=== PATIENT | female | born 1950 | race Caucasian/White ===

== ENCOUNTER → 2017-11-07 | Outpatient (CLI) | payer MEDICARE, MEDICAID ==
--- NOTE | 2017-11-07 10:16 | RADIOLOGY REPORT (SQ) ---
EXAM DESCRIPTION: CAROTID DOPPLER COMPLETED DATE/TIME: 11/07/2017 10:03 am REASON FOR STUDY: STENOSIS I65.23 OCCLUSION AND STENOSIS OF BILATERAL CAROTID ARTERIES COMPARISON: None. TECHNIQUE: Grayscale ultrasound, Doppler velocity and spectra, and color Doppler images acquired of the extra-cranial carotid and vertebral arteries. Images stored on PACS. LIMITATIONS: Limited study due to the patient's body habitus. FINDINGS: RIGHT CAROTID CCA Velocities: Within normal limits. ICA Velocities Peak systolic 1.35 m/s. End diastolic 0.27 m/s. Proximal ICA/CCA peak systolic ratio 2.3. Dense heterogenous plaque in the carotid bulb and proximal internal and external carotid arteries. E levated velocity in the external carotid artery. LEFT CAROTID CCA Velocities: Within normal limits. ICA Velocities Peak systolic 1.33 m/s. End diastolic 0.21 m/s. Proximal ICA/CCA peak systolic ratio 1.7. Heterogenous plaque in the carotid bulb and proximal internal carotid artery. VERTEBRAL ARTERIES: Antegrade flow. Normal waveforms. SUBCLAVIAN ARTERIES: No finding. OTHER: No other significant finding. IMPRESSION: LIMITED STUDY. DENSE HETEROGENOUS PLAQUE IN RIGHT CAROTID BULB AND PROXIMAL INTERNAL AN D EXTERNAL CAROTID ARTERIES WITH 50- 69% STENOSIS OF THE RIGHT INTERNAL CAROTID ARTERY. THERE IS ALS O STENOSIS OF THE RIGHT EXTERNAL CAROTID ARTERY. BORDERLINE 50% STENOSIS OF THE LEFT INTERNAL CAROTI D ARTERY. IF CLINICALLY INDICATED, CTA OR MRA MAY PROVIDE BETTER VISUALIZATION. COMMENT: Quality ID #[id number]: Velocity criteria are extrapolated from the diameter data as defined by t he Society of Radiologists in Ultrasound Consensus Conference. Radiology 2003: 229; 340-346. TECHNICAL DOCUMENTATION: JOB ID: [id number] [employer]- All Rights Reserved
== END ==
LOC: SP 08:47
PROVIDERS: ATTEND Surgery
DX: I65.23 Occlusion and stenosis of bilateral carotid arteries (principal)
CPT/HCPCS: 93880

== ENCOUNTER 2017-12-27 21:27 | Emergency (ER) | payer OTHER, MEDICARE, MEDICAID ==
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
[2017-12-28 03:11] LABS: ABSOLUTE BASOPHILS # (AUTO) 0.2 10^3/uL (0.0-0.2); ABSOLUTE EOSINOPHILS # (AUTO) 0.3 10^3/uL (0.0-0.6); ABSOLUTE LYMPHOCYTES (AUTO) 3.8 10^3/uL (0.5-4.7); ABSOLUTE NEUT (AUTO) 10.9 10^3/uL (1.7-8.2); BASOPHILS % (AUTO) 1.2 % (0-2); EOSINOPHILS % (AUTO) 1.6 % (0-6); HEMATOCRIT 47.6 % (36.0-47.0); HEMOGLOBIN 16.1 g/dL (12.0-15.5); LYMPHOCYTES % (AUTO) 23.4 % (13-45); MEAN CORPUSCULAR HEMOGLOBIN 30.5 pg (27.0-33.4); MEAN CORPUSCULAR HGB CONC 33.8 g/dL (32.0-36.0); MEAN CORPUSCULAR VOLUME 90 fl (80-97); RED BLOOD COUNT 5.28 10^6/uL (3.72-5.28); RED CELL DISTRIBUTION WIDTH 13.5 % (11.5-14.0); SEGMENTED NEUTROPHILS % (AUTO) 67.8 % (42-78); TOTAL CELLS COUNTED % (AUTO) 100 %; WHITE BLOOD COUNT 16.1 10^3/uL (4.0-10.5)
[2017-12-28 03:43] LABS: PLATELET COUNT 286 10^3/uL (150-450)
[2017-12-28 04:19] VITALS: BP 148/97
--- NOTE | 2017-12-29 12:02 | EKG REPORT ---
SEVERITY:- ABNORMAL ECG - SINUS RHYTHM ANTEROLATERAL INFARCT, RECENT : Confirmed by: Maame Jalloh MD 29-Dec-2017 12:01:36
== END 2017-12-28 04:21 | disposition home or self-care (01) ==
LOC: ER 21:27
DX: S40.011A Contusion of right shoulder, initial encounter (principal); M79.1 Myalgia; R07.89 Other chest pain; M79.604 Pain in right leg; M25.511 Pain in right shoulder; V89.2XXA Person injured in unspecified motor-vehicle accident, traffic, initial encounter
CPT/HCPCS: 36415; 71046; 84484; 85025; 93005; 93010; 99284

== ENCOUNTER 2018-06-02 12:49 | Emergency (ER) | payer MEDICARE, MEDICAID ==
[2018-06-02] MEDS ORDERED: ALBUTEROL SULFATE 0.083% NEB 2.5 MG/3 ML AMPUL NEB ONE (13:05)
[2018-06-02] MEDS ORDERED: IPRATROPIUM/ALBUTEROL 0.5-2.5 MG/3 ML AMPUL NEB ONE (13:05)
[2018-06-02] MEDS ORDERED: METHYLPREDNISOLONE INJ 125 MG/2 ML SDV IV ONE (13:06)
--- NOTE | 2018-06-02 13:10 | ER Document Report ---
ED General - General Stated Complaint: BREATHING DIFFICULTY Time Seen by Provider: 06/02/18 12:57 Mode of Arrival: Medic Information source: Patient Notes: 67-year-old female with COPD, hypertension resents with complaint of shortness of breath that started 2 weeks prior to arrival but worsened over the last few days. Patient no longer uses tobacco. She denies any new productive cough, fever, chest pain. She does admit to urinary frequency. Patient was seen by her primary care physician this morning and advised to be seen in the emergency department. Patient has not had any recent hospitalizations. She has tried her DuoNeb at home without relief. TRAVEL OUTSIDE OF THE [place] IN LAST 30 DAYS: No - HPI Onset: Other Onset/Duration: Gradual, Persistent Quality of pain: No pain Pain Level: Denies Associated symptoms: Shortness of breath. denies: Chest pain, Nonproductive cough, Productive cough, Nausea, Vomiting Exacerbated by: Denies Relieved by: Denies Similar symptoms previously: Yes Recently seen / treated by doctor: Yes - Related Data Allergies/Adverse Reactions: ibuprofen [From Motrin] Allergy (Verified 02/23/16 12:44) Iodinated Contrast- Oral and IV Dye [IV Dye, Iodine Containing] Allergy ( Verified 02/23/16 12:40) Penicillins Allergy (Verified 02/23/16 12:40) Sulfa (Sulfonamide Antibiotics) Allergy (Verified 02/23/16 12:40) Past Medical History - General Information source: Patient, Emergency Med Personnel, [facility] Records - Social History Smoking Status: Former Smoker Cigarette use (# per day): No Chew tobacco use (# tins/day): No Smoking Education Provided: No Frequency of alcohol use: None Drug Abuse: None Lives with: Family Family History: None - Past Medical History Cardiac Medical History: Reports: Hx Hypertension Renal/ Medical History: Denies: Hx Peritoneal Dialysis Psychiatric Medical History: Reports: Hx Depression - Immunizations Immunizations up to date: Yes Hx Diphtheria, Pertussis, Tetanus Vaccination: No Review of Systems - Review of Systems Notes: REVIEW OF SYSTEMS: CONSTITUTIONAL : Denies fever, chills, or sweats. Denies recent illness. Denies weight loss, recent hospitalizations. EENT: Denies visual changes, eye pain. Denies nasal or sinus congestion or discharge. Denies sore throat, oral lesions, difficulty swallowing. CARDIOVASCULAR: Denies chest pain. Denies palpitations. Denies lower extremity edema. RESPIRATORY: Denies cough, cold, or chest congestion. GASTROINTESTINAL: Denies abdominal pain or distention. Denies nausea, vomiting , or diarrhea. Denies blood in vomitus, stools, or per rectum. Denies black, tarry stools. Denies constipation. GENITOURINARY: Denies difficulty urinating, painful urination, blood in urine , or vaginal discharge. MUSCULOSKELETAL: Denies back or neck pain or stiffness. Denies joint pain or swelling. SKIN: Denies rash, lesions or sores. HEMATOLOGIC : Denies easy bruising or bleeding. LYMPHATIC: Denies swollen glands. NEUROLOGICAL: Denies confusion or altered mental status. Denies passing out or loss of consciousness. Denies dizziness or lightheadedness. Denies headache. Denies weakness or paralysis. Denies problems difficulty with ambulation, slurred speech. Denies sensory loss, numbness, or tingling. Denies seizures. PSYCHIATRIC: Denies anxiety or stress. Denies depression, suicidal ideation, or homicidal ideation. Denies visual or auditory hallucinations. Physical Exam - Vital signs Vitals: Pulse Ox 97 06/02/18 12:53 - Notes Notes: PHYSICAL EXAMINATION: GENERAL: Well-appearing, well-nourished and in no acute distress. HEAD: Atraumatic, normocephalic. EYES: Pupils equal round and reactive to light, extraocular movements intact, conjunctiva are normal. ENT: Nares patent, oropharynx clear without exudates. Moist mucous membranes. NECK: Normal range of motion, supple without lymphadenopathy LUNGS: Diminished breath sounds in all lung hernandez with mild expiratory wheezing in the right and left lower lung field. HEART: Regular rate and rhythm without murmurs ABDOMEN: Soft, nontender, nondistended abdomen. No guarding, no rebound. No masses appreciated. Female : deferred Musculoskeletal: Normal range of motion, no pitting or edema. No cyanosis. NEUROLOGICAL: Cranial nerves grossly intact. Normal speech, normal gait. Normal sensory, motor exams PSYCH: Normal mood, normal affect. SKIN: Warm, Dry, normal turgor, no rashes or lesions noted. Course - Re-evaluation Re-evalutation: Laboratory 06/02/18 06/02/18 06/02/18 13:02 13:40 13:40 WBC 12.3 H RBC 4.99 Hgb 15.6 H Hct 45.9 MCV 92 MCH 31.3 MCHC 34.1 RDW 13.2 Plt Count 324 Seg Neutrophils % 74.1 Lymphocytes % 18.6 Monocytes % 5.0 Eosinophils % 1.6 Basophils % 0.7 Absolute Neutrophils 9.1 H Absolute Lymphocytes 2.3 Absolute Monocytes 0.6 Absolute Eosinophils 0.2 Absolute Basophils 0.1 VBG pH 7.44 H VBG pCO2 39.5 VBG HCO3 26.5 VBG Base Excess 2.3 Urine Color YELLOW Urine Appearance CLOUDY Urine pH 8.0 Ur Specific [place] 1.012 Urine Protein NEGATIVE Urine Glucose (UA) NEGATIVE Urine Ketones NEGATIVE Urine Blood NEGATIVE Urine Nitrite NEGATIVE Urine Bilirubin NEGATIVE Urine Urobilinogen NEGATIVE Ur Leukocyte Esterase NEGATIVE Urine WBC (Auto) 3 Urine RBC (Auto) 1 Urine Bacteria (Auto) TRACE Squamous Epi Cells Auto 2 Urine Mucus (Auto) RARE Urine Ascorbic Acid 20 H Chest X-Ray 06/02/18 13:06 IMPRESSION: NO ACUTE RADIOGRAPHIC FINDING IN THE CHEST. 67-year-old female with a history of COPD presents with complaint of shortness of breath that has been ongoing for 2 weeks but worse over the last few days. She was seen by her primary care physician earlier this morning and advised to be seen in the emergency department. Upon arrival patient is afebrile, normotensive and not hypoxic. She does not appear toxic or dehydrated. She is in no acute respiratory distress. Patient has a normal respiratory rate, she has no accessory muscle use. She is able to speak in full sentences. CBC shows mild leukocytosis, VBG within normal limits. Urinalysis without evidence of infection. Chest x-ray shows no acute abnormality. Patient is tearful and when asked why she states that she recently lost her nephew to pancreatic cancer suddenly. She declines admission at this time because she wants to be able to attend his viewing services. Patient was administered multiple breathing treatments, IV Solu-Medrol, magnesium. 06/02/18 14:15 She reevaluated after receiving breathing treatments, Solu-Medrol and magnesium and reports an improvement of her shortness of breath. Patient ambulated on pulse ox and maintained her oxygen saturation above 93%. Patient provided the opportunity to ask questions, and express concerns. Discharge instructions discussed. Patient is agreeable with discharge home. Return indications explained and discussed with the patient who displays understanding. Patient encouraged to return to the emergency department immediately with any concerns. 06/02/18 14:15 06/02/18 19:12 - Vital Signs Vital signs: Temp Pulse Resp BP Pulse Ox 25 H 164/88 H 95 06/02/18 15:53 06/02/18 15:53 06/02/18 15:53 - Laboratory Result Diagrams: 06/02/18 13:40 06/02/18 13:40 Laboratory results interpreted by me: 06/02/18 06/02/18 06/02/18 13:02 13:40 13:40 WBC 12.3 H Hgb 15.6 H Absolute Neutrophils 9.1 H VBG pH Sodium 145.1 H Calcium 10.3 H NT-Pro-B Natriuret Pep Urine Ascorbic Acid 20 H 06/02/18 06/02/18 13:40 13:40 WBC Hgb Absolute Neutrophils VBG pH 7.44 H Sodium Calcium NT-Pro-B Natriuret Pep 943 H Urine Ascorbic Acid - Diagnostic Test Radiology reviewed: Image reviewed, Reports reviewed - EKG Interpretation by Me EKG shows normal: Sinus rhythm Rate: Normal Rhythm: NSR When compared to previous EKG there are: No significant change - Q waves V1 through V3 unchanged from previous EKG obtained December 2017 Discharge - Discharge Clinical Impression: COPD exacerbation Condition: Good Disposition: HOME, SELF-CARE Instructions: Chronic Obstructive Lung Disease ([facility]) Additional Instructions: Follow up with your physician tomorrow for further care or return to the ED IMMEDIATELY if symptoms worsen or new concerns occur. If you cannot afford to follow up with your primary care physician a list of low cost clinics have been provided at the end of your discharge papers as well. Prescriptions: Prednisone [Deltasone 20 mg Tablet] 3 tab PO DAILY 5 Days #15 tablet Referrals: ISHAN THOMPSON PA-C [ALLIED HEALTH PROFESSIONAL] - Follow up as needed
[2018-06-02] MEDS: MAGNESIUM SULFATE/D5W 1 GM/100 ML RTUPB IV SCH ×2 (13:19→14:46)
[2018-06-02 13:25] LABS: APPEARANCE,URINE CLOUDY; BILIRUBIN,URINE NEGATIVE (NEGATIVE); COLOR,URINE YELLOW; GLUCOSE, URINE NEGATIVE (NEGATIVE); KETONES,URINE NEGATIVE (NEGATIVE); LEUKOCYTE ESTERASE,URINE NEGATIVE (NEGATIVE); NITRITE,URINE NEGATIVE (NEGATIVE); PROTEIN,URINE NEGATIVE (NEGATIVE); URINE SPECIFIC GRAVITY 1.012; UROBILINOGEN,URINE NEGATIVE mg/dL (<2.0)
--- NOTE | 2018-06-02 13:40 | RADIOLOGY REPORT (SQ) ---
EXAM DESCRIPTION: CHEST 2 VIEWS COMPLETED DATE/TIME: 06/02/2018 1:29 pm REASON FOR STUDY: sob COMPARISON: 12/28/2017 two-view chest EXAM PARAMETERS: NUMBER OF VIEWS: two views TECHNIQUE: Digital Frontal and Lateral radiographic views of the chest acquired. RADIATION DOSE: NA LIMITATIONS: none FINDINGS: LUNGS AND PLEURA: No opacities, masses or pneumothorax. No pleural effusion. MEDIASTINUM AND HILAR STRUCTURES: No masses or contour abnormalities. HEART AND VASCULAR STRUCTURES: Stable mild cardiomegaly BONES: Osteoporotic. No thoracic compression deformities HARDWARE: Surgical clips right peritracheal region likely post right lobe thyroidectomy OTHER: No other significant finding. IMPRESSION: NO ACUTE RADIOGRAPHIC FINDING IN THE CHEST. TECHNICAL DOCUMENTATION: JOB ID: [id number] [employer]- All Rights Reserved Reading location - IP/workstation name: [email or web address]
[2018-06-02 13:58] LABS: VENOUS BLOOD BASE EXCESS 2.3 mmol/L; VENOUS BLOOD HCO3 26.5 mmol/L (20-32); VENOUS BLOOD PCO2 39.5 mmHg (35-63); VENOUS BLOOD PH 7.44 (7.30-7.42)
[2018-06-02 13:59] LABS: ABSOLUTE BASOPHILS # (AUTO) 0.1 10^3/uL (0.0-0.2); ABSOLUTE EOSINOPHILS # (AUTO) 0.2 10^3/uL (0.0-0.6); ABSOLUTE LYMPHOCYTES (AUTO) 2.3 10^3/uL (0.5-4.7); ABSOLUTE MONOCYTES (AUTO) 0.6 10^3/uL (0.1-1.4); ABSOLUTE NEUT (AUTO) 9.1 10^3/uL (1.7-8.2); BASOPHILS % (AUTO) 0.7 % (0-2); EOSINOPHILS % (AUTO) 1.6 % (0-6); HEMATOCRIT 45.9 % (36.0-47.0); HEMOGLOBIN 15.6 g/dL (12.0-15.5); LYMPHOCYTES % (AUTO) 18.6 % (13-45); MEAN CORPUSCULAR HEMOGLOBIN 31.3 pg (27.0-33.4); MEAN CORPUSCULAR HGB CONC 34.1 g/dL (32.0-36.0); MEAN CORPUSCULAR VOLUME 92 fl (80-97); PLATELET COUNT 324 10^3/uL (150-450); RED BLOOD COUNT 4.99 10^6/uL (3.72-5.28); RED CELL DISTRIBUTION WIDTH 13.2 % (11.5-14.0); SEGMENTED NEUTROPHILS % (AUTO) 74.1 % (42-78); TOTAL CELLS COUNTED % (AUTO) 100 %; WHITE BLOOD COUNT 12.3 10^3/uL (4.0-10.5)
[2018-06-02 14:15] LABS: ANION GAP 12 (5-19); BLOOD UREA NITROGEN 16 mg/dL (7-20); CALCIUM 10.3 mg/dL (8.4-10.2); CARBON DIOXIDE 28 mmol/L (22-30); CHLORIDE 105 mmol/L (98-107); GLUCOSE 110 mg/dL (75-110); POTASSIUM 4.6 mmol/L (3.6-5.0); SODIUM 145.1 mmol/L (137-145)
[2018-06-02 14:27] LABS: TROPONIN I 0.026 ng/mL
[2018-06-02 16:07] VITALS: BP 164/88
--- NOTE | 2018-06-03 06:19 | EKG REPORT ---
SEVERITY:- ABNORMAL ECG - SINUS RHYTHM ANTERIOR INFARCT, AGE INDETERMINATE : Confirmed by: Cali Cabrales MD 03-Jun-2018 06:17:59
== END 2018-06-02 16:06 | disposition home or self-care (01) ==
LOC: ER 12:49
DX: J44.1 Chronic obstructive pulmonary disease with (acute) exacerbation (principal); R06.02 Shortness of breath; R35.0 Frequency of micturition; D72.819 Decreased white blood cell count, unspecified; I10 Essential (primary) hypertension; Z87.891 Personal history of nicotine dependence; Z88.6 Allergy status to analgesic agent; Z91.041 Radiographic dye allergy status; Z88.0 Allergy status to penicillin; Z88.2 Allergy status to sulfonamides
CPT/HCPCS: 93005; 94640 ×2; 99285; 96375; 96365; 96366; 36415; 85025; 80048; 81001; 84484; 82803; 83880; 71046; 93010; J2930; J3475; A9270 ×2; J7620

== ENCOUNTER 2018-11-28 14:31 | Emergency (ER) | payer MEDICARE, MEDICAID ==
[2018-11-28] MEDS ORDERED: ONDANSETRON 4 MG TAB.RAPDIS PO ONE (14:53)
--- NOTE | 2018-11-28 14:57 | ER Document Report ---
ED Medical Screen (RME) - General Chief Complaint: Weakness Stated Complaint: WEAKNESS Time Seen by Provider: 11/28/18 14:53 Mode of Arrival: Wheelchair Information source: Patient Notes: 68-year-old female presented to ED for complaint of weakness with no energy and rub her legs for the last several days. She states she has been nauseated and has vomited one time has had some dizziness but has not been eating properly and has no appetite. She states that at times it is hard to catch her breath and she gets short of breath. She states she is on chronic pain management for chronic pain in her right side. She states she vomited once 3 days ago and had a temperature of 101.72 days ago but none since. Patient states she is nauseated and is not able to walk like she usually does due to the being tired and fatigued. Lungs clear respirations regular and unlabored patient able to speak in full sentences pupils equal and react to light. Patient states she has a history of CHF, COPD, and CAD. She states she has high blood pressure and cholesterol but those are under control with her medications I have greeted and performed a rapid initial assessment of this patient. A comprehensive ED assessment and evaluation of the patient, analysis of test results and completion of medical decision making process will be conducted by an additional ED providers. TRAVEL OUTSIDE OF THE [place] IN LAST 30 DAYS: No - Related Data Allergies/Adverse Reactions: ibuprofen [From Motrin] Allergy (Verified 02/23/16 12:44) Iodinated Contrast- Oral and IV Dye [IV Dye, Iodine Containing] Allergy (Verified 02/23/16 12:40) Penicillins Allergy (Verified 02/23/16 12:40) Sulfa (Sulfonamide Antibiotics) Allergy (Verified 02/23/16 12:40) Past Medical History - Past Medical History Cardiac Medical History: Reports: Hx Hypertension Renal/ Medical History: Denies: Hx Peritoneal Dialysis Psychiatric Medical History: Reports: Hx Depression Past Surgical History: Reports: Hx Orthopedic Surgery - Immunizations Immunizations up to date: Yes Hx Diphtheria, Pertussis, Tetanus Vaccination: No Physical Exam - Vital signs Vitals: Temp Pulse Resp BP Pulse Ox 99.1 F 85 16 110/76 94 11/28/18 14:39 11/28/18 14:39 11/28/18 14:39 11/28/18 14:39 11/28/18 14:39 Course - Vital Signs Vital signs: Temp Pulse Resp BP Pulse Ox 99.1 F 85 16 110/76 94 11/28/18 14:39 11/28/18 14:39 11/28/18 14:39 11/28/18 14:39 11/28/18 14:39 Doctor's Discharge - Discharge Referrals: SAMY FENTON MD [Primary Care Provider] - Follow up as needed
--- NOTE | 2018-11-28 15:35 | RADIOLOGY REPORT (SQ) ---
EXAM DESCRIPTION: CHEST 2 VIEWS COMPLETED DATE/TIME: 11/28/2018 3:13 pm REASON FOR STUDY: short of breath COMPARISON: 06/02/2018 EXAM PARAMETERS: NUMBER OF VIEWS: two views TECHNIQUE: Digital Frontal and Lateral radiographic views of the chest acquired. RADIATION DOSE: NA LIMITATIONS: none FINDINGS: LUNGS AND PLEURA: Increased heterogeneous opacity of the right lung base, with underlying volume loss of the right hemithorax of uncertain nature, possibly due to prior lobectomy or wedge res ection. MEDIASTINUM AND HILAR STRUCTURES: No masses or contour abnormalities. HEART AND VASCULAR STRUCTURES: Heart normal size. No evidence for failure. BONES: No acute findings. HARDWARE: None in the chest. OTHER: No other significant finding. IMPRESSION: Increased heterogeneous opacity of the right lung base, with underlying volume loss of t he right hemithorax of uncertain nature, possibly due to prior lobectomy or wedge resection. Finding s are concerning for infection or aspiration. TECHNICAL DOCUMENTATION: JOB ID: [id number] [employer]- All Rights Reserved Reading location - IP/workstation name: [email or web address]
[2018-11-28 15:40] LABS: ABSOLUTE LYMPHOCYTES (AUTO) 2.2 10^3/uL (0.5-4.7); ABSOLUTE MONOCYTES (AUTO) 0.6 10^3/uL (0.1-1.4); ABSOLUTE NEUT (AUTO) 3.2 10^3/uL (1.7-8.2); BASOPHILS % (AUTO) 0.7 % (0-2); EOSINOPHILS % (AUTO) 0.2 % (0-6); HEMATOCRIT 51.3 % (36.0-47.0); HEMOGLOBIN 17.8 g/dL (12.0-15.5); LYMPHOCYTES % (AUTO) 35.4 % (13-45); MEAN CORPUSCULAR HEMOGLOBIN 30.2 pg (27.0-33.4); MEAN CORPUSCULAR HGB CONC 34.6 g/dL (32.0-36.0); MEAN CORPUSCULAR VOLUME 87 fl (80-97); MONOCYTES % (AUTO) 10.5 % (3-13); PLATELET COUNT 237 10^3/uL (150-450); RED BLOOD COUNT 5.88 10^6/uL (3.72-5.28); RED CELL DISTRIBUTION WIDTH 13.2 % (11.5-14.0); SEGMENTED NEUTROPHILS % (AUTO) 53.2 % (42-78); TOTAL CELLS COUNTED % (AUTO) 100 %; WHITE BLOOD COUNT 6.1 10^3/uL (4.0-10.5)
[2018-11-28 15:56] LABS: APPEARANCE,URINE CLOUDY; BILIRUBIN,URINE NEGATIVE (NEGATIVE); GLUCOSE, URINE NEGATIVE (NEGATIVE); KETONES,URINE NEGATIVE (NEGATIVE); LEUKOCYTE ESTERASE,URINE TRACE (NEGATIVE); NITRITE,URINE NEGATIVE (NEGATIVE); PROTEIN,URINE 100 mg/dL (NEGATIVE); URINE SPECIFIC GRAVITY 1.019; UROBILINOGEN,URINE NEGATIVE mg/dL (<2.0)
[2018-11-28 15:59] LABS: COLOR,URINE YELLOW
[2018-11-28 15:59] LABS: ALANINE AMINOTRANSFERASE 24 U/L (9-52); ALBUMIN 4.4 g/dL (3.5-5.0); ALKALINE PHOSPHATASE 61 U/L (38-126); ANION GAP 11 (5-19); ASPARTATE AMINO TRANSFERASE 32 U/L (14-36); BILIRUBIN,DIRECT 0.3 mg/dL (0.0-0.4); BILIRUBIN,TOTAL 0.6 mg/dL (0.2-1.3); BLOOD UREA NITROGEN 23 mg/dL (7-20); CALCIUM 9.7 mg/dL (8.4-10.2); CARBON DIOXIDE 28 mmol/L (22-30); CHLORIDE 100 mmol/L (98-107); GLUCOSE 128 mg/dL (75-110); POTASSIUM 3.7 mmol/L (3.6-5.0); SODIUM 139.2 mmol/L (137-145); TOTAL PROTEIN 7.2 g/dL (6.3-8.2)
[2018-11-28] MEDS ORDERED: IPRATROPIUM/ALBUTEROL 0.5-2.5 MG/3 ML AMPUL NEB ONE (16:15)
[2018-11-28] MEDS ORDERED: ACETAMINOPHEN 325 MG TABLET PO ONE (16:16)
--- NOTE | 2018-11-28 16:18 | ER Document Report ---
ED General - General Chief Complaint: Weakness Stated Complaint: WEAKNESS Time Seen by Provider: 11/28/18 14:53 Mode of Arrival: Wheelchair Information source: Patient Notes: 68-year-old female with COPD, hypertension, congestive heart failure presents with complaint of cough, myalgia, weakness, fatigue and intermittent subjective fever for approximately 1 week. Patient no longer smokes but states that she has had a productive persistent cough. Patient has been experiencing chills, sweats. Patient has been taking her breathing medications without relief. She did not receive a flu shot. She denies any headache, chest pain, abdominal pain. Patient does admit to nausea and one episode of vomiting which resolved. TRAVEL OUTSIDE OF THE [place] IN LAST 30 DAYS: No - HPI Onset: Other Onset/Duration: Gradual, Persistent Quality of pain: Achy Severity: Mild Associated symptoms: Body/muscle aches, Chills, Productive cough, Fever, Nausea, Vomiting, Shortness of breath Exacerbated by: Coughing Relieved by: Denies Similar symptoms previously: Yes Recently seen / treated by doctor: Yes - Related Data Allergies/Adverse Reactions: ibuprofen [From Motrin] Allergy (Verified 02/23/16 12:44) Iodinated Contrast- Oral and IV Dye [IV Dye, Iodine Containing] Allergy (Verified 02/23/16 12:40) Penicillins Allergy (Verified 02/23/16 12:40) Sulfa (Sulfonamide Antibiotics) Allergy (Verified 02/23/16 12:40) Past Medical History - General Information source: Patient, [facility] Records - Social History Smoking Status: Former Smoker Frequency of alcohol use: None Drug Abuse: None Lives with: Spouse/Significant other Family History: None Patient has suicidal ideation: No Patient has homicidal ideation: No - Past Medical History Cardiac Medical History: Reports: Hx Congestive Heart Failure, Hx Hypertension Pulmonary Medical History: Reports: Hx COPD Renal/ Medical History: Denies: Hx Peritoneal Dialysis Psychiatric Medical History: Reports: Hx Depression Past Surgical History: Reports: Hx Orthopedic Surgery - Immunizations Immunizations up to date: Yes Hx Diphtheria, Pertussis, Tetanus Vaccination: No Review of Systems - Review of Systems Notes: REVIEW OF SYSTEMS: CONSTITUTIONAL : Denies recent illness. Denies weight loss, recent hospitalizations. EENT: Denies visual changes, eye pain. Denies sore throat, oral lesions, difficulty swallowing. CARDIOVASCULAR: Denies chest pain. Denies palpitations. Denies lower extremity edema. RESPIRATORY: Cough, shortness of breath,+ wheezing GASTROINTESTINAL: Denies abdominal pain or distention. Denies diarrhea. Denies blood in vomitus, stools, or per rectum. Denies black, tarry stools. Denies constipation. GENITOURINARY: Denies difficulty urinating, painful urination, frequency, blood in urine, or vaginal discharge. MUSCULOSKELETAL: Denies back or neck pain or stiffness. Denies joint pain or swelling. SKIN: Denies rash, lesions or sores. HEMATOLOGIC : Denies easy bruising or bleeding. LYMPHATIC: Denies swollen glands. NEUROLOGICAL: Denies confusion or altered mental status. Denies loss of consciousness. Denies dizziness or lightheadedness. Denies headache. Denies w eakness or paralysis. Denies problems difficulty with ambulation, slurred speech. Denies sensory loss, numbness, or tingling. Denies seizures. PSYCHIATRIC: Denies anxiety or stress. Denies depression, suicidal ideation, or homicidal ideation. Denies visual or auditory hallucinations. Physical Exam - Vital signs Vitals: Temp Pulse Resp BP Pulse Ox 99.1 F 85 16 110/76 94 11/28/18 14:39 11/28/18 14:39 11/28/18 14:39 11/28/18 14:39 11/28/18 14:39 - Notes Notes: PHYSICAL EXAMINATION: GENERAL: Ill-appearing but not toxic HEAD: Atraumatic, normocephalic. EYES: Pupils equal round and reactive to light, extraocular movements intact, conjunctiva are normal. ENT: Nares patent, oropharynx clear without exudates. Moist mucous membranes. NECK: Normal range of motion, supple without lymphadenopathy LUNGS: Breath sounds clear to auscultation bilaterally and equal. No wheezes rales or rhonchi. HEART: Regular rate and rhythm without murmurs ABDOMEN: Soft, nontender, nondistended abdomen. No guarding, no rebound. No masses appreciated. Female : deferred Musculoskeletal: Normal range of motion, no pitting or edema. No cyanosis. NEUROLOGICAL: Cranial nerves grossly intact. Normal speech, normal gait. Normal sensory, motor exams PSYCH: Normal mood, normal affect. SKIN: Warm, Dry, normal turgor, no rashes or lesions noted. Course - Re-evaluation Re-evalutation: Laboratory 11/28/18 11/28/18 11/28/18 15:18 15:28 15:28 WBC 6.1 RBC 5.88 H Hgb 17.8 H Hct 51.3 H MCV 87 MCH 30.2 MCHC 34.6 RDW 13.2 Plt Count 237 Seg Neutrophils % 53.2 Lymphocytes % 35.4 Monocytes % 10.5 Eosinophils % 0.2 Basophils % 0.7 Absolute Neutrophils 3.2 Absolute Lymphocytes 2.2 Absolute Monocytes 0.6 Absolute Eosinophils 0.0 Absolute Basophils 0.0 Sodium 139.2 Potassium 3.7 Chloride 100 Carbon Dioxide 28 Anion Gap 11 BUN 23 H Creatinine 0.68 Est GFR ( Amer) > 60 Est GFR (Non-Af Amer) > 60 Glucose 128 H Calcium 9.7 Total Bilirubin 0.6 Direct Bilirubin 0.3 Neonat Total Bilirubin Not Reportable Neonat Direct Bilirubin Not Reportable Neonat Indirect Bili Not Reportable AST 32 ALT 24 Alkaline Phosphatase 61 Total Protein 7.2 Albumin 4.4 Urine Color YELLOW Urine Appearance CLOUDY Urine pH 6.0 Ur Specific Dalton 1.019 Urine Protein 100 H Urine Glucose (UA) NEGATIVE Urine Ketones NEGATIVE Urine Blood NEGATIVE Urine Nitrite NEGATIVE Urine Bilirubin NEGATIVE Urine Urobilinogen NEGATIVE Ur Leukocyte Esterase TRACE H Urine WBC (Auto) 4 Urine RBC (Auto) 1 U Hyaline Cast (Auto) 5 Squamous Epi Cells Auto 3 Urine Mucus (Auto) FEW Urine Ascorbic Acid 40 H Influenza A (Rapid) Influenza B (Rapid) 11/28/18 16:29 WBC RBC Hgb Hct MCV MCH MCHC RDW Plt Count Seg Neutrophils % Lymphocytes % Monocytes % Eosinophils % Basophils % Absolute Neutrophils Absolute Lymphocytes Absolute Monocytes Absolute Eosinophils Absolute Basophils Sodium Potassium Chloride Carbon Dioxide Anion Gap BUN Creatinine Est GFR ( Amer) Est GFR (Non-Af Amer) Glucose Calcium Total Bilirubin Direct Bilirubin Neonat Total Bilirubin Neonat Direct Bilirubin Neonat Indirect Bili AST ALT Alkaline Phosphatase Total Protein Albumin Urine Color Urine Appearance Urine pH Ur Specific Dalton Urine Protein Urine Glucose (UA) Urine Ketones Urine Blood Urine Nitrite Urine Bilirubin Urine Urobilinogen Ur Leukocyte Esterase Urine WBC (Auto) Urine RBC (Auto) U Hyaline Cast (Auto) Squamous Epi Cells Auto Urine Mucus (Auto) Urine Ascorbic Acid Influenza A (Rapid) NEGATIVE Influenza B (Rapid) NEGATIVE Chest X-Ray 11/28/18 14:54 IMPRESSION: Increased heterogeneous opacity of the right lung base, with underlying volume loss of the right hemithorax of uncertain nature, possibly due to prior lobectomy or wedge resection. Findings are concerning for infection or aspiration. Chest CT 11/28/18 16:15 IMPRESSION: 1. There are postoperative findings of a prior right apical paramedian resection, perhaps of a posterior mediastinal mass. There is underlying scarring or atelectasis of the right lung base with superimposed ground-glass opacity and consolidation of the right middle lobe and right lung base. Findings favor atypical infection or aspiration. Recommend follow-up CT in 3 months to ensure stability or resolution. 2. Emphysema. 3. Coronary artery disease. Temp Pulse Resp BP Pulse Ox 98.3 F 67 18 105/64 95 11/28/18 18:10 11/28/18 18:10 11/28/18 18:10 11/28/18 18:10 11/28/18 18:10 11/28/18 17:30 Discussed findings of pneumonia with the patient. Patient was offered admission but is declining. She has an upcoming appointment with her primary care physician in approximately 1 week and does not want to be admitted to the hospital. Vital signs reviewed upon arrival and patient is afebrile, normotensive and not hypoxic. She does appear ill but not toxic or dehydrated. She is in no acute respiratory distress. Patient did receive breathing treatments, doxycycline. Patient discharged home with recommendations to return if she is unable to tolerate her antibiotics, fever returns or for any other symptoms that are concerning to her. 11/28/18 22:51 11/29/18 01:18 - Vital Signs Vital signs: Temp Pulse Resp BP Pulse Ox 98.3 F 67 18 105/64 95 11/28/18 18:10 11/28/18 18:10 11/28/18 18:10 11/28/18 18:10 11/28/18 18:10 - Laboratory Result Diagrams: 11/28/18 15:28 11/28/18 15:28 Laboratory results interpreted by me: 11/28/18 11/28/18 11/28/18 15:18 15:28 15:28 RBC 5.88 H Hgb 17.8 H Hct 51.3 H BUN 23 H Glucose 128 H Urine Protein 100 H Ur Leukocyte Esterase TRACE H Urine Ascorbic Acid 40 H - Diagnostic Test Radiology reviewed: Image reviewed, Reports reviewed Discharge - Discharge Clinical Impression: Community acquired pneumonia Qualifiers: Laterality: unspecified laterality Qualified Code(s): J18.9 - Pneumonia, unspecified organism Condition: Good Disposition: HOME, SELF-CARE Instructions: Pneumonia ([facility]) Additional Instructions: You have been diagnosed with a pneumonia. It is very important that you take all of your antibiotics until they are gone even if you are feeling better. Please return to the emergency department immediately if you began having worsening shortness of breath, become confused, have worsening pain, pass out, have persistent vomiting that prevents you from being able to drink fluids for m ore than 12 hours, or have any other symptoms that are worrisome to you. Please follow-up with your primary care doctor in the next 1-2 days. Prescriptions: RX: Doxycycline Hyclate 100 mg PO BID #14 capsule Ondansetron [Zofran Odt 4 mg Tablet] 1 - 2 tab PO Q4H PRN #15 tab.rapdis PRN Reason: For Nausea/Vomiting Referrals: SAMY FENTON MD [Primary Care Provider] - 12/10/18
[2018-11-28 16:58] LABS: A TYPE INFLUENZA AG NEGATIVE (NEGATIVE); B INFLUENZA AG NEGATIVE (NEGATIVE)
--- NOTE | 2018-11-28 17:15 | RADIOLOGY REPORT (SQ) ---
EXAM DESCRIPTION: CT CHEST WITHOUT COMPLETED DATE/TIME: 11/28/2018 4:53 pm REASON FOR STUDY: concern for infection seen on x-ray COMPARISON: Chest radiograph, 11/28/2018 TECHNIQUE: CT scan performed of the chest without intravenous contrast. Images reviewed with lung, soft tissue and bone windows. Reconstructed coronal and sagittal MPR images reviewed. All images st ored on PACS. All CT scanners at this facility use dose modulation, iterative reconstruction, and/or weight based d osing when appropriate to reduce radiation dose to as low as reasonably achievable (ALARA). [facility]: Dose Right [facility]: CareDose [facility]: Dose Right [facility]: Teradose 4D [facility]: [employer] RADIATION DOSE: CT Rad equipment meets quality standard of care and radiation dose reduction techniq ues were employed. CTDIvol: 14.5 mGy. DLP: 597 mGy-cm. mGy. LIMITATIONS: No technical limitations. FINDINGS: LUNGS AND PLEURA: There are postoperative findings of a prior right apical paramedian rese ction. There is underlying scarring or atelectasis of the right lung base with superimposed ground-g lass opacity and consolidation of the right middle lobe and right lung base. Mild centrilobular emph ysema. HILAR AND MEDIASTINAL STRUCTURES: No identified masses or abnormal nodes. No obvious aneurysm. HEART AND VASCULAR STRUCTURES: No aneurysm. No pericardial effusion. Three-vessel coronary artery c alcifications. UPPER ABDOMEN: No significant findings. Limited exam. THYROID AND OTHER SOFT TISSUES: No masses. No adenopathy. BONES: No significant finding. HARDWARE: None in the chest. OTHER: No other significant findings. IMPRESSION: 1. There are postoperative findings of a prior right apical paramedian resection, perhap s of a posterior mediastinal mass. There is underlying scarring or atelectasis of the right lung bas e with superimposed ground-glass opacity and consolidation of the right middle lobe and right lung ba se. Findings favor atypical infection or aspiration. Recommend follow-up CT in 3 months to ensure s tability or resolution. 2. Emphysema. 3. Coronary artery disease. TECHNICAL DOCUMENTATION: JOB ID: [id number] Quality ID # [id number]: Final reports with documentation of one or more dose reduction techniques (e.g., Au tomated exposure control, adjustment of the mA and/or kV according to patient size, use of iterative reconstruction technique) 2010 [email or web address]- All Rights Reserved Reading location - IP/workstation name: [email or web address]
[2018-11-28 18:11] VITALS: BP 105/64
== END 2018-11-28 18:13 | disposition home or self-care (01) ==
LOC: ER 14:31
DX: J18.9 Pneumonia, unspecified organism (principal); R53.1 Weakness; J44.9 Chronic obstructive pulmonary disease, unspecified; I11.0 Hypertensive heart disease with heart failure; I50.9 Heart failure, unspecified; Z88.0 Allergy status to penicillin; Z88.2 Allergy status to sulfonamides; Z88.6 Allergy status to analgesic agent
CPT/HCPCS: 94640; 99285; 36415; 85025; 80053; 81001; 87804; 71046; 71250; A9270 ×3; J7620; S0119

== ENCOUNTER 2019-06-14 15:36 | Emergency (ER) | payer MEDICARE, MEDICAID ==
[2019-06-14] MEDS ORDERED: IPRATROPIUM/ALBUTEROL 0.5-2.5 MG/3 ML AMPUL NEB ONE (16:26)
--- NOTE | 2019-06-14 16:28 | ER Document Report ---
ED Medical Screen (RME) - General Chief Complaint: Breathing Difficulty Stated Complaint: BREATHING DIFFICULTY Time Seen by Provider: 06/14/19 16:23 Primary Care Provider: CAMILLA MERIDA PA [Primary Care Provider] - Follow up as needed Notes: Patient is a 60-year-old female history of COPD and CHF presents to the emergency department for worsening respiratory distress. States she is become more short of breath over the last couple of days. Patient states she feels generalized weakness and is unable to walk "a long time because I get short of breath." Patient is complaining of a generalized heaviness in the center of her chest. States pain increases when she takes a deep breath. Patient also complaining of a generalized headache. States she recently saw her neurologist who gave her Botox injections. States "they helped a little bit." GENERAL: Alert, interacts well. No acute distress. LUNGS: Inspiratory expiratory wheezes heard all lung hernandez I have greeted and performed a rapid initial assessment of this patient. A comprehensive ED assessment and evaluation of the patient, analysis of test results and completion of the medical decision making process will be conducted by additional ED providers. I have specifically instructed the patient or family members with the patient to immediately return to any nursing staff should anything change in the patient's condition or with their chief complaint. This medical record was dictated with voice recognizing software. There may be grammatical, syntax errors that are unintended. TRAVEL OUTSIDE OF THE [place] IN LAST 30 DAYS: No - Related Data Allergies/Adverse Reactions: carbamazepine [From Tegretol] Allergy (Verified 06/14/19 16:19) ibuprofen [From Motrin] Allergy (Verified 06/14/19 15:38) Iodinated Contrast- Oral and IV Dye [IV Dye, Iodine Containing] Allergy (Verified 06/14/19 15:38) Penicillins Allergy (Verified 06/14/19 15:38) Sulfa (Sulfonamide Antibiotics) Allergy (Verified 06/14/19 15:38) Past Medical History - Past Medical History Cardiac Medical History: Reports: Hx Congestive Heart Failure, Hx Hypertension Pulmonary Medical History: Reports: Hx COPD Renal/ Medical History: Denies: Hx Peritoneal Dialysis Psychiatric Medical History: Reports: Hx Depression Past Surgical History: Reports: Hx Orthopedic Surgery - Immunizations Immunizations up to date: Yes Hx Diphtheria, Pertussis, Tetanus Vaccination: No Physical Exam - Vital signs Vitals: Temp Pulse Resp BP Pulse Ox 98.2 F 88 22 H 128/76 H 97 06/14/19 15:37 06/14/19 15:37 06/14/19 15:37 06/14/19 15:37 06/14/19 15:37 Course - Vital Signs Vital signs: Temp Pulse Resp BP Pulse Ox 98.2 F 88 22 H 128/76 H 97 06/14/19 15:37 06/14/19 15:37 06/14/19 15:37 06/14/19 15:37 06/14/19 15:37 Doctor's Discharge - Discharge Referrals: CAMILLA MERIDA PA [Primary Care Provider] - Follow up as needed
[2019-06-14] MEDS ORDERED: ASPIRIN 325 MG TABLET PO ONE (16:37)
--- NOTE | 2019-06-14 17:00 | ER Document Report ---
ED General - General Chief Complaint: Breathing Difficulty Stated Complaint: BREATHING DIFFICULTY Time Seen by Provider: 06/14/19 16:23 Primary Care Provider: CAMILLA MERIDA PA [NO LOCAL MD] - Follow up as needed Mode of Arrival: Ambulatory Information source: Patient Notes: Joe Chavez is a 60yo female who presents today to the emergency department with multiple complaints. Patient has a history of COPD, CAD, RSD, breast cancer. Patient complains of breathing difficulty that is worse in the past week. She also complains she is dizzy, has a headache, her stomach hurts and her sinuses are hurting. Patient reports she has no strength to walk. Patient reports she has been up all night because she cannot cannot lay down. She reports she has been leaning forward. She reports that she gets very anxious with history of anxiety and that sort of the reason she cannot lay down to go to sleep. She complains of epigastric abdominal pain. She denies chest pain denies chest heaviness at this time. Patient reports been short of breath for the past few years. The difficulty breathing has increased in the last couple weeks. She went to her primary care Dr. Bolden approximately 10 days ago. He was not there but she was treated by a "Jacy" with prednisone and an antibiotic. She has finished those medications. She also complains of a massive headache for the past year with a history of migraines. She had a CT head for this over a year ago. She was recently treated for this with Botox and another medication that she reports is not working. She reports decreased appetite. C/O anxiety, reports fingers bright colored. All these symptoms concerns have been going on for a long time. Denies fever reports she vomited twice today. Denies diarrhea. Patient is short of breath on exertion. Winded when talking. TRAVEL OUTSIDE OF THE [place] IN LAST 30 DAYS: No - HPI Onset: Other Onset/Duration: Persistent Quality of pain: Pressure Pain Level: 5 Associated symptoms: Headache, Vomiting, Shortness of breath Exacerbated by: Denies Relieved by: Denies Similar symptoms previously: Yes Recently seen / treated by doctor: Yes - Related Data Allergies/Adverse Reactions: carbamazepine [From Tegretol] Allergy (Verified 06/14/19 16:19) ibuprofen [From Motrin] Allergy (Verified 06/14/19 15:38) Iodinated Contrast- Oral and IV Dye [IV Dye, Iodine Containing] Allergy (Verified 06/14/19 15:38) Penicillins Allergy (Verified 06/14/19 15:38) Sulfa (Sulfonamide Antibiotics) Allergy (Verified 06/14/19 15:38) Past Medical History - General Information source: Patient - Social History Smoking Status: Former Smoker Cigarette use (# per day): No Frequency of alcohol use: None Drug Abuse: None Lives with: Family Family History: None Patient has suicidal ideation: No Patient has homicidal ideation: No - Past Medical History Cardiac Medical History: Reports: Hx Congestive Heart Failure, Hx Hypertension Pulmonary Medical History: Reports: Hx COPD Renal/ Medical History: Denies: Hx Peritoneal Dialysis Psychiatric Medical History: Reports: Hx Depression Past Surgical History: Reports: Hx Orthopedic Surgery - Immunizations Immunizations up to date: Yes Hx Diphtheria, Pertussis, Tetanus Vaccination: No Review of Systems - Review of Systems Notes: Review HPI for review of systems., All other systems negative Physical Exam - Vital signs Vitals: Temp Pulse Resp BP Pulse Ox 98.2 F 88 22 H 128/76 H 97 06/14/19 15:37 06/14/19 15:37 06/14/19 15:37 06/14/19 15:37 06/14/19 15:37 - General General appearance: Alert, Anxious In distress: None - HEENT Head: Normocephalic, Atraumatic Eyes: Normal Conjunctiva: Normal Sinus: Frontal, Mastoid, Tenderness Mouth/Lips: Normal Mucous membranes: Normal, Moist Pharynx: Normal. No: Erythema Neck: Normal, Supple. No: Lymphadenopathy - Respiratory Respiratory status: Labored Chest status: Nontender Breath sounds: Decreased air movement Chest palpation: Normal - Cardiovascular Rhythm: Regular Heart sounds: Normal auscultation Murmur: No - Abdominal Inspection: Normal Distension: No distension Bowel sounds: Normal Tenderness: Tender - epigastric area Organomegaly: No organomegaly - Back Back: Normal, Nontender - Extremities General upper extremity: Normal ROM General lower extremity: Normal ROM - Neurological Neuro grossly intact: Yes Cognition: Normal Orientation: AAOx4 Mandy Coma Scale Eye Opening: Spontaneous Mandy Coma Scale Verbal: Oriented [place] Coma Scale Motor: Obeys Commands Mandy Coma Scale Total: 15 Speech: Normal Sensory: Normal - Psychological Associated symptoms: Normal affect, Normal mood - Skin Skin Temperature: Warm Skin Moisture: Dry Skin Color: Normal Course - Re-evaluation Re-evalutation: 06/14/19 19:55 This 68-year-old female presents the emergency department with multiple complaints. After long discussion with her is discovered that most of her complaints are chronic. Patient has a history of COPD emphysema anxiety migraine headaches and sinus issues. She presents today with complaints of difficulty breathing dizziness abdominal pain sinus issues. Labs show a WBC of 15.5 which may be related to her recent steroid use. Patient has no fever is not tachycardic. BNP is 1840. Chest x-ray is clear does not show any vascular congestion. Respiratory rate is even unlabored with O2 sat of 96-97% on room air. consulted dr jennifer nielsen. She advised another dose of steroids and augmentin. pt is allergic to penicillins. clindamycin ordered. patient and were instructed to follow up with dr bolden this week for recheck or return to the ED for worsening problems. Discharged home with steroids clindamycin for COPD exacerbation and sinusitis. Dictation of this chart was performed using voice recognition software; theref ore, there may be some unintended grammatical errors. 06/14/19 20:00 - Vital Signs Vital signs: Temp Pulse Resp BP Pulse Ox 98.2 F 88 21 H 116/77 96 06/14/19 15:37 06/14/19 15:37 06/14/19 19:01 06/14/19 19:01 06/14/19 19:01 - Laboratory Result Diagrams: 06/14/19 16:30 06/14/19 16:30 Laboratory results interpreted by me: 06/14/19 06/14/19 06/14/19 16:30 16:30 16:30 WBC 15.1 H Hgb 16.5 H Hct 47.9 H RDW 14.1 H Absolute Neutrophils 10.8 H Glucose 111 H Calcium 10.5 H Alkaline Phosphatase 37 L NT-Pro-B Natriuret Pep 1840 H Albumin 5.1 H Urine Protein Urine Ketones Urine Ascorbic Acid 06/14/19 16:30 WBC Hgb Hct RDW Absolute Neutrophils Glucose Calcium Alkaline Phosphatase NT-Pro-B Natriuret Pep Albumin Urine Protein 100 H Urine Ketones 20 H Urine Ascorbic Acid 40 H - Diagnostic Test Radiology reviewed: Image reviewed, Reports reviewed - EXAM DESCRIPTION: CHEST SINGLE VIEW COMPLETED DATE/TIME: 06/14/2019 4:59 pm REASON FOR STUDY: SOB COMPARISON: Chest x-ray 11/28/2018. EXAM PARAMETERS: NUMBER OF VIEWS: One view. TECHNIQUE: Single frontal radiographic view of the chest acquired. RA DIATION DOSE: NA LIMITATIONS: None. FINDINGS: LUNGS AND PLEURA: Hyperlucent lungs are consistent with emphysema. No consolidation, pleural effusion or pneumothorax. MEDIASTINUM AND HILAR STRUCTURES: Surgical clips are noted at the right upper mediastinum. HEART AND VASCULAR STRUCTURES: Heart normal in size. No overt vascular congestion. BONES: Multilevel degenerative changes at the spine. HARDWARE: None in the chest. IMPRESSION: NO ACUTE RADIOGRAPHIC FINDING IN THE CHEST. EMPHYSEMA. TECHNICAL DOCUMENTATION: JOB ID: [id number] 2010 [employer]- All Rights Reserved Reading location - IP/workstation name: [email or web address] Dictated by: RADHA BUITRAGO DO [id number] CC: AALIYAH SCRUGGS PA-C > 06/14/19 1717 Principal [employer] Crew Officer Name: RADHA BUITRAGO Provider ID: [id number] Discharge - Discharge Clinical Impression: Difficulty breathing, COPD exacerbation Sinusitis Qualifiers: Sinusitis location: unspecified location Chronicity: acute Recurrence: not specified as recurrent Qualified Code(s): J01.90 - Acute sinusitis, unspecified Condition: Stable Disposition: HOME, SELF-CARE Instructions: Chronic Obstructive Lung Disease ([facility]), Clindamycin ([facility]), Sinusitis ([facility]), Steroid Medication Additional Instructions: *You have been evaluated for complaints of difficulty breathing, dizziness, stomach pain, sinuse pain and no strength to walk. COPD exacerbation and sinusitis *Monitor your temperature *Take medication as prescribed, use your neb treatment and inhaler as prescribed *Follow up with Dr Bolden within 3 days for recheck *Return to ED for worsening condition, changes, needs Prescriptions: Clindamycin HCl [Cleocin 300 mg Capsule] 300 mg PO BID #14 capsule Prednisone [Deltasone 20 mg Tablet] 60 mg PO DAILY #15 tablet Referrals: CAMILLA MERIDA PA [NO LOCAL MD] - Follow up as needed
[2019-06-14 17:11] LABS: ABSOLUTE BASOPHILS # (AUTO) 0.2 10^3/uL (0.0-0.2); ABSOLUTE EOSINOPHILS # (AUTO) 0.2 10^3/uL (0.0-0.6); ABSOLUTE LYMPHOCYTES (AUTO) 3.1 10^3/uL (0.5-4.7); ABSOLUTE MONOCYTES (AUTO) 0.8 10^3/uL (0.1-1.4); ABSOLUTE NEUT (AUTO) 10.8 10^3/uL (1.7-8.2); BASOPHILS % (AUTO) 1.3 % (0-2); HEMATOCRIT 47.9 % (36.0-47.0); HEMOGLOBIN 16.5 g/dL (12.0-15.5); LYMPHOCYTES % (AUTO) 20.5 % (13-45); MEAN CORPUSCULAR HEMOGLOBIN 31.3 pg (27.0-33.4); MEAN CORPUSCULAR HGB CONC 34.5 g/dL (32.0-36.0); MEAN CORPUSCULAR VOLUME 91 fl (80-97); MONOCYTES % (AUTO) 5.3 % (3-13); PLATELET COUNT 414 10^3/uL (150-450); RED BLOOD COUNT 5.28 10^6/uL (3.72-5.28); RED CELL DISTRIBUTION WIDTH 14.1 % (11.5-14.0); SEGMENTED NEUTROPHILS % (AUTO) 71.9 % (42-78); TOTAL CELLS COUNTED % (AUTO) 100 %; WHITE BLOOD COUNT 15.1 10^3/uL (4.0-10.5)
--- NOTE | 2019-06-14 17:16 | RADIOLOGY REPORT (SQ) ---
EXAM DESCRIPTION: CHEST SINGLE VIEW COMPLETED DATE/TIME: 06/14/2019 4:59 pm REASON FOR STUDY: SOB COMPARISON: Chest x-ray 11/28/2018. EXAM PARAMETERS: NUMBER OF VIEWS: One view. TECHNIQUE: Single frontal radiographic view of the chest acquired. RADIATION DOSE: NA LIMITATIONS: None. FINDINGS: LUNGS AND PLEURA: Hyperlucent lungs are consistent with emphysema. No consolidation, pleu ral effusion or pneumothorax. MEDIASTINUM AND HILAR STRUCTURES: Surgical clips are noted at the right upper mediastinum. HEART AND VASCULAR STRUCTURES: Heart normal in size. No overt vascular congestion. BONES: Multilevel degenerative changes at the spine. HARDWARE: None in the chest. IMPRESSION: NO ACUTE RADIOGRAPHIC FINDING IN THE CHEST. EMPHYSEMA. TECHNICAL DOCUMENTATION: JOB ID: [id number] [employer]- All Rights Reserved Reading location - IP/workstation name: [email or web address]
[2019-06-14 17:22] LABS: APPEARANCE,URINE CLOUDY; BILIRUBIN,URINE NEGATIVE (NEGATIVE); COLOR,URINE AMBER; GLUCOSE, URINE NEGATIVE (NEGATIVE); KETONES,URINE 20 mg/dL (NEGATIVE); LEUKOCYTE ESTERASE,URINE NEGATIVE (NEGATIVE); NITRITE,URINE NEGATIVE (NEGATIVE); PROTEIN,URINE 100 mg/dL (NEGATIVE); URINE SPECIFIC GRAVITY 1.021; UROBILINOGEN,URINE NEGATIVE mg/dL (<2.0)
[2019-06-14 17:34] LABS: ALANINE AMINOTRANSFERASE 31 U/L (9-52); ALBUMIN 5.1 g/dL (3.5-5.0); ALKALINE PHOSPHATASE 37 U/L (38-126); ANION GAP 13 (5-19); ASPARTATE AMINO TRANSFERASE 27 U/L (14-36); BILIRUBIN,DIRECT 0.3 mg/dL (0.0-0.4); BLOOD UREA NITROGEN 19 mg/dL (7-20); CALCIUM 10.5 mg/dL (8.4-10.2); CARBON DIOXIDE 22 mmol/L (22-30); CHLORIDE 107 mmol/L (98-107); GLUCOSE 111 mg/dL (75-110); POTASSIUM 4.5 mmol/L (3.6-5.0); SODIUM 141.8 mmol/L (137-145)
[2019-06-14 17:46] LABS: TROPONIN I 0.015 ng/mL
--- NOTE | 2019-06-14 19:05 | EKG REPORT ---
SEVERITY:- ABNORMAL ECG - SINUS RHYTHM ATRIAL PREMATURE COMPLEX ANTERIOR INFARCT, AGE INDETERMINATE : Confirmed by: Maame Jalloh MD 14-Jun-2019 19:04:49
--- NOTE | 2019-06-14 19:05 | EKG REPORT ---
SEVERITY:- ABNORMAL ECG - SINUS RHYTHM MULTIPLE ATRIAL PREMATURE COMPLEXES ABNRM R PROG, CONSIDER ASMI OR LEAD PLACEMENT ABNORMAL T, CONSIDER ISCHEMIA, LATERAL LEADS : Confirmed by: Maame Jalloh MD 14-Jun-2019 19:04:53
[2019-06-14 19:10] VITALS: BP 116/77
== END 2019-06-14 19:16 | disposition home or self-care (01) ==
LOC: ER 15:36
DX: R06.02 Shortness of breath (principal); R42 Dizziness and giddiness; R51 Headache; F41.9 Anxiety disorder, unspecified; R10.13 Epigastric pain; Z87.891 Personal history of nicotine dependence; I50.9 Heart failure, unspecified; I11.0 Hypertensive heart disease with heart failure; J44.9 Chronic obstructive pulmonary disease, unspecified; I25.10 Atherosclerotic heart disease of native coronary artery without angina pectoris
CPT/HCPCS: 93005; 94640; 99285; 36415; 85025; 80053; 81001; 84484; 83880; 71045; 93010; A9270 ×2; J7620

== ENCOUNTER → 2019-12-16 | Outpatient (CLI) | payer MEDICARE, MEDICAID ==
[2019-12-16 15:25] LABS: HEMATOCRIT 45.3 % (36.0-47.0); HEMOGLOBIN 15.5 g/dL (12.0-15.5); MEAN CORPUSCULAR HEMOGLOBIN 30.4 pg (27.0-33.4); MEAN CORPUSCULAR HGB CONC 34.3 g/dL (32.0-36.0); MEAN CORPUSCULAR VOLUME 89 fl (80-97); PLATELET COUNT 318 10^3/uL (150-450); RED BLOOD COUNT 5.11 10^6/uL (3.72-5.28); RED CELL DISTRIBUTION WIDTH 13.5 % (11.5-14.0); WHITE BLOOD COUNT 11.6 10^3/uL (4.0-10.5)
[2019-12-16 15:45] LABS: ALBUMIN 4.6 g/dL (3.5-5.0); ALKALINE PHOSPHATASE 40 U/L (38-126); ASPARTATE AMINO TRANSFERASE 21 U/L (14-36); BILIRUBIN,DIRECT 0.2 mg/dL (0.0-0.4); BILIRUBIN,TOTAL 0.7 mg/dL (0.2-1.3)
== END ==
LOC: LAB 15:05
PROVIDERS: ATTEND Internal Medicine Gastroenterology
DX: R10.13 Epigastric pain (principal)
CPT/HCPCS: 36415; 80076; 83690; 85027

== ENCOUNTER → 2019-12-31 | Outpatient (CLI) | payer MEDICARE, MEDICAID ==
--- NOTE | 2019-12-31 09:47 | WOMENS IMAGING REPORT ---
EXAM DESCRIPTION: U/S ABDOMEN TOTAL COMPLETED DATE/TIME: 12/31/2019 8:01 am REASON FOR STUDY: R10.13 EPIGASTRIC PAIN R10.13 EPIGASTRIC PAIN R14.0 ABDOMINAL DISTENSION (GASEOU S) COMPARISON: CT chest 11/28/2018 TECHNIQUE: Dynamic and static grayscale images acquired of the abdomen and recorded on PACS. Additio nal selected color Doppler and spectral images recorded. Note: Study does not meet criteria for complete doppler/duplex scan LIMITATIONS: Midline bowel gas, body habitus FINDINGS: PANCREAS: Not visualized due to midline bowel gas LIVER: Normal size, diffuse increased echogenicity from fatty infiltration. No gross masses or bilia ry ductal dilatation LIVER VASCULATURE: Normal directional flow of the main portal vein and hepatic veins. GALLBLADDER: No stones. Normal wall thickness. No pericholecystic fluid. ULTRASOUND-DETECTED QUEEN'S SIGN: Negative. INTRAHEPATIC DUCTS AND COMMON DUCT: CBD and intrahepatic ducts normal caliber. No filling defects. INFERIOR VENA CAVA: Not well seen due to fatty infiltration of the liver AORTA: Not well seen due to midline bowel gas RIGHT KIDNEY: 12 cm in length with mild cortical thinning along the upper pole. Normal echogenicit y. No solid or suspicious masses. No hydronephrosis. No calcifications. LEFT KIDNEY: 13 cm in length Normal echogenicity. No solid or suspicious masses. No hydronephr osis. No calcifications. SPLEEN: Normal size. No solid masses. PERITONEAL AND PLEURAL SPACES: No ascites or effusions. OTHER: No other significant finding. IMPRESSION: Fatty liver No gallstones, gallbladder wall thickening or pericholecystic fluid. Pancreas, of vena cava, aorta not well seen due to midline bowel gas TECHNICAL DOCUMENTATION: JOB ID: [id number]- All Rights Reserved Reading location - IP/workstation name: [email or web address]
== END ==
LOC: WI 06:57
PROVIDERS: ATTEND Internal Medicine Gastroenterology
DX: R10.13 Epigastric pain (principal); R14.0 Abdominal distension (gaseous)
CPT/HCPCS: 76700

== ENCOUNTER → 2020-04-18 | Outpatient (CLI) | payer MEDICARE, MEDICAID | LOC: RAD 09:52 | PROVIDERS: ATTEND Internal Medicine Gastroenterology | DX: R10.13 Epigastric pain (principal) | CPT/HCPCS: 82565 ==